=== PATIENT | male | born 1975 | race Caucasian/White ===

== ENCOUNTER 2023-01-17 21:35 | Emergency (ER) | payer OTHER ==
[~2023-01-17] VITALS: Ht 182.9 cm; Wt 88.5 kg
[2023-01-17 22:03] LABS: BASOPHILS ABSOLUTE AUTO 0.03 K/mm3 (0.00-0.23); BASOPHILS PERCENT AUTO 1 % (0-2); EOSINOPHILS ABSOLUTE AUTO 0.02 K/mm3 (0.00-0.68); EOSINOPHILS PERCENT AUTO 1 % (0-6); Hematocrit 45.8 % (37.0-53.0); Hemoglobin 15.8 g/dL (13.5-17.5); IMMATURE GRAN ABSOLUTE AUTO 0.01 K/mm3 (0.00-0.10); IMMATURE GRAN PERCENT AUTO 0 % (0-1); LYMPHOCYTES ABSOLUTE AUTO 0.36 K/mm3 (0.84-5.20); LYMPHOCYTES PERCENT AUTO 9 % (21-46); MONOCYTES ABSOLUTE AUTO 0.41 K/mm3 (0.16-1.47); MONOCYTES PERCENT AUTO 10 % (4-13); Mean Corpuscular HGB 32.5 pg (26.0-34.0); Mean Corpuscular HGB Conc 34.5 g/dL (31.5-36.5); Mean Corpuscular Volume 94 fL (80-100); Mean Platelet Volume 11.1 fL (9.1-12.4); NEUTROPHILS ABSOLUTE AUTO 3.31 K/mm3 (1.96-9.15); NEUTROPHILS PERCENT AUTO 80 % (41-73); RDW Coefficient Variation 14.4 % (11.7-14.2); RDW Standard Deviation 49.9 fL (35.1-46.3); Red Blood Cell Count 4.86 M/mm3 (4.30-5.90); White Blood Cell Count 4.14 K/mm3 (4.00-11.30)
[2023-01-17 22:08] LABS: Platelet Count 35 K/mm3 (150-400)
[2023-01-17 22:22] LABS: Alanine Aminotransfer (ALT/SGP 217 U/L (12-78); Albumin, Blood 3.8 g/dL (3.4-5.0); Alk Phos 205 U/L (50-136); Anion Gap 11 mmol/L (6-16); Aspartate Aminotrans (AST/SGOT 421 U/L (12-37); Bilirubin, Total 5.9 mg/dL (0.1-1.0); Blood Urea Nitrogen 6 mg/dL (8-24); Bun/Creatinine Ratio 11.6 (12.0-20.0); CO2, Blood 20 mmol/L (21-32); Calcium, Blood 8.8 mg/dL (8.5-10.1); Chloride, Blood 106 mmol/L (98-108); Creatinine, Blood 0.52 mg/dL (0.60-1.20); Globulin, Blood 3.7 g/dL (2.2-4.0); Glomerular Filtration Rate 124 (60-); Glucose, Blood 139 mg/dL (70-99); Potassium, Blood 4.4 mmol/L (3.5-5.5); Sodium, Blood 137 mmol/L (136-145); Total Protein, Blood 7.5 g/dL (6.4-8.2)
[2023-01-18 00:45] VITALS: BP 126/77
[2023-01-18 00:58] LABS: Magnesium, Blood 2.2 mg/dL (1.6-2.4)
[2023-01-18] MEDS ORDERED: ALPR.25 PO (01:50)
[2023-01-18] MEDS ORDERED: LEVE500 PO (01:55)
[2023-01-18 02:00] LABS: Phosphorus, Blood 1.5 mg/dL (2.5-4.9)
== END 2023-01-18 04:17 | disposition home or self-care (01) ==
LOC: ER 21:35
PROVIDERS: Emergency Medicine
DX: R56.9 Unspecified convulsions (principal)
CPT/HCPCS: 70450; 70486; 80053; 82550; 83605; 83735; 84100; 84484; 85025; 96365; 96375; 99284-25; J1953; J2060; J7030

== ENCOUNTER 2023-01-25 21:36 | Emergency (ER) | payer OTHER ==
[~2023-01-25] VITALS: Ht 182.9 cm; Wt 83.9 kg
[~2023-01-25 21:36] MED LIST: ALPR.25 PO; LEVE500 PO
[2023-01-25 21:38] VITALS: BP 125/87
[2023-01-26] MEDS ORDERED: HYDHCL25 (00:43)
[2023-01-26] MEDS ORDERED: PRAV20 PO (00:44)
[2023-01-26] MEDS ORDERED: LAMO100 PO (00:45)
== END 2023-01-26 06:00 | disposition home or self-care (01) ==
LOC: ER 21:36
DX: S09.93XA Unspecified injury of face, initial encounter (principal); X58.XXXA Exposure to other specified factors, initial encounter; Z79.899 Other long term (current) drug therapy
CPT/HCPCS: 99283